=== PATIENT | female | born 1995 | race Caucasian/White ===

== ENCOUNTER 2016-08-26 12:03 | Emergency (ER) | payer SELFPAY ==
[~2016-08-26] VITALS: Ht 162.6 cm; Wt 68.2 kg
[~2016-08-26 12:03] MED LIST: NO HOME MEDICATIONS
[2016-08-26 12:07] VITALS: BP 132/75; TEMP 97.9
[2016-08-26] MEDS ORDERED: ZOFRAN 4MG T4 MG/TAB PO (13:12)
[2016-08-26 13:53] VITALS: PULSE 63
== END 2016-08-26 13:54 | disposition home or self-care (01) ==
LOC: COL.ER 12:03
DX: R51 Headache (principal); R11.2 Nausea with vomiting, unspecified; M54.2 Cervicalgia; R42 Dizziness and giddiness; R52 Pain, unspecified; F17.210 Nicotine dependence, cigarettes, uncomplicated
CPT/HCPCS: J1200; J1885; J2765; J7030

== ENCOUNTER 2016-12-01 20:42 | Emergency (ER) | payer SELFPAY ==
[~2016-12-01] VITALS: Ht 162.6 cm; Wt 63.6 kg
[~2016-12-01 20:42] MED LIST changes: +ZOFRAN 4MG T4 MG/TAB PO
[2016-12-01 20:44] VITALS: BP 148/85; PULSE 85; TEMP 98.8
[2016-12-01] MEDS ORDERED: NORCO 325 MG-51 TAB PO (22:09)
[2016-12-01] MEDS ORDERED: AMOXICILLIN 50500 MG PO (22:09)
== END 2016-12-01 22:14 | disposition home or self-care (01) ==
LOC: COL.ER 20:42
DX: K02.9 Dental caries, unspecified (principal); F17.210 Nicotine dependence, cigarettes, uncomplicated; Z98.890 Other specified postprocedural states; Z87.39 Personal history of other diseases of the musculoskeletal system and connective tissue

== ENCOUNTER 2017-06-02 09:19 | Emergency (ER) | payer SELFPAY ==
[~2017-06-02] VITALS: Ht 162.6 cm; Wt 73.7 kg
[~2017-06-02 09:19] MED LIST changes: +AMOXICILLIN 50500 MG PO; +NORCO 325 MG-51 TAB PO
[2017-06-02 09:24] VITALS: TEMP 98.5
[2017-06-02 10:07] LABS: COLLECTION METHOD CLEAN CATCH
[2017-06-02 10:11] LABS: BASO % 0.4 % (0.0-2.0); EOS # 0.1 (0.0-0.7); EOS % 1.2 % (0-4.0); GRAN # 5.2 (1.4-6.5); GRAN % 69.3 % (42.2-75.2); LYMPH # 1.8 (1.2-3.4); LYMPH % 23.3 % (20.0-51.0); MEAN CELL VOLUME 87 fl (80.0-100.0); MEAN CORPUSCULAR HGB CONC 33 g/dl (33.0-37.0); MEAN PLATELET VOLUME 10.7 fl (7.4-10.4); MONO # 0.4 (0.1-0.6); MONO % 5.5 % (1.7-9.3); PLATELET COUNT 322 K/mm3 (130-400); RED BLOOD COUNT 4.14 M/mm3 (4.10-5.30)
[2017-06-02 10:14] LABS: HEMOGLOBIN 11.8 g/dl (12.5-16.0); MEAN CORPUSCULAR HEMOGLOBIN 29 pg (27.0-31.0)
[2017-06-02 10:14] LABS: PH 7 (5-8); URINE APPEARANCE Clear; URINE BACTERIA Rare /hpf; URINE BILIRUBIN Negative (NEGATIVE); URINE BLOOD Negative (NEGATIVE); URINE COLOR Straw; URINE GLUCOSE Negative (NEGATIVE); URINE KETONE Negative (NEGATIVE); URINE LEUKOCYTE ESTERASE Negative (NEGATIVE); URINE NITRATE Negative (NEGATIVE); URINE PROTEIN(semi-quant) Negative (NEGATIVE); URINE RBC None Seen /hpf; URINE UROBILINOGEN Negative (NEGATIVE)
[2017-06-02 10:32] LABS: ALANINE AMINOTRANSFERASE 20 U/L (9-52); ALBUMIN 4.6 gm/dL (3.5-5.0); ALKALINE PHOSPHATASE 57 U/L (50-136); ANION GAP 9 mmol/L (7-16); AST,SGOT 31 U/L (15-37); BILIRUBIN,TOTAL 0.2 mg/dL (0.0-1.0); BLOOD UREA NITROGEN 6 mg/dL (7-17); CARBON DIOXIDE 26 mmol/L (22-30); CHLORIDE 104 mmol/L (98-107); GLUCOSE 88 mg/dL (74-106); POTASSIUM 4.2 mmol/L (3.4-5.0); SODIUM 138 mmol/L (137-145); TOTAL PROTEIN 7.5 gm/dL (6.4-8.2)
[2017-06-02 10:40] LABS: C-REACTIVE PROTEIN < 0.5 mg/dL (0.0-0.9)
[2017-06-02 11:13] VITALS: BP 118/68; PULSE 60
== END 2017-06-02 11:13 | disposition home or self-care (01) ==
LOC: COL.ER 09:19
PROVIDERS: Physician Assistant
DX: R19.7 Diarrhea, unspecified (principal); Z83.79 Family history of other diseases of the digestive system
CPT/HCPCS: J2405; J7030

== ENCOUNTER 2019-05-13 15:18 | Emergency (ER) | payer SELFPAY ==
[~2019-05-13] VITALS: Ht 162.6 cm; Wt 69.5 kg
[2019-05-13 15:26] VITALS: BP 134/78; TEMP 97.4
[2019-05-13 16:58] VITALS: PULSE 77
== END 2019-05-13 16:55 | disposition home or self-care (01) ==
LOC: COL.ER 15:18
DX: S01.81XA Laceration without foreign body of other part of head, initial encounter (principal); Z23 Encounter for immunization; F17.210 Nicotine dependence, cigarettes, uncomplicated; W01.198A Fall on same level from slipping, tripping and stumbling with subsequent striking against other object, initial encounter; Y92.59 Other trade areas as the place of occurrence of the external cause